=== PATIENT | female | born 1975 | race Caucasian/White ===

== ENCOUNTER 2016-12-24 12:01 | Emergency (ER) | payer BC ==
[2016-12-24 12:23] VITALS: BP 121/65
--- NOTE | 2016-12-24 13:56 | UC ---
Throat Pain/Nasal Karel HPI - HPI Summary HPI Summary: FOUR WEEKS OF SINUS PRESSURE AND POST NASAL DRIP. - History of Current Complaint Chief Complaint: UCGeneralIllness Stated Complaint: SINUS COMPLAINT Time Seen by Provider: 12/24/16 12:23 Hx Obtained From: Patient Hx Last Menstrual Period: 2016 Onset/Duration: Gradual Onset, Lasting Days Pain Intensity: 0 Pain Scale Used: 0-10 Numeric Cough: None Associated Signs & Symptoms: Positive: Sinus Discomfort, Nasal Discharge - Allergies/Home Medications Allergies/Adverse Reactions: Allergies Allergy/AdvReac Type Severity Reaction Status Date / Time Aspirin Allergy Severe cant breath Verified 01/14/16 18:23 Home Medications: Home Medications Ascorbic Acid TAB* [Vitamin C TAB*] 500 mg PO DAILY 12/24/16 [History Confirmed 12/24/16] Cholecalciferol TAB* [Vitamin D TAB*] 400 unit PO DAILY 12/24/16 [History Confirmed 12/24/16] guaiFENesin ER TAB [Mucinex*] 1 tab PO BID 12/24/16 [History Confirmed 12/24/16] PMH/Surg Hx/FS Hx/Imm Hx Previously Healthy: Yes Endocrine History Of: Denies: Diabetes Cardiovascular History Of: Denies: Cardiac Disorders Respiratory History Of: Reports: Asthma - Surgical History Surgical History: Yes Surgery Procedure, Year, and Place: tonsilectomy. 05- varicose vein - Family History Known Family History: Positive: Cardiac Disease, Hypertension, Diabetes, Respiratory Disease - Social History Occupation: Employed Full-time Lives: With Family Alcohol Use: Occasionally Substance Use Type: None Smoking Status (MU): Never Smoked Tobacco - Immunization History Most Recent Influenza Vaccination: [id number] Review of Systems Constitutional: Negative Skin: Negative Eyes: Negative ENT: Ear Ache, Nasal Discharge Respiratory: Cough Cardiovascular: Negative Gastrointestinal: Negative Genitourinary: Negative Motor: Negative Neurovascular: Negative Musculoskeletal: Negative Neurological: Negative Psychological: Negative All Other Systems Reviewed And Are Negative: Yes Physical Exam Triage Information Reviewed: Yes Appearance: Well-Appearing, No Pain Distress, Well-Nourished Vital Signs: Initial Vital Signs Temp 98.8 F 12/24/16 12:17 Pulse 54 12/24/16 12:17 Resp 16 12/24/16 12:17 BP 121/65 12/24/16 12:17 Pulse Ox 100 12/24/16 12:17 Vital Signs Reviewed: Yes Eye Exam: Normal Eyes: Positive: Conjunctiva Clear ENT: Positive: Hearing grossly normal, Pharynx normal, TM bulging, TM dull Dental Exam: Normal Neck exam: Normal Respiratory Exam: Normal Respiratory: Positive: Chest non-tender, Lungs clear, Normal breath sounds, No respiratory distress, No accessory muscle use Cardiovascular Exam: Normal Cardiovascular: Positive: RRR, No Murmur, Pulses Normal Abdominal Exam: Normal Abdomen Description: Positive: Nontender, No Organomegaly Musculoskeletal Exam: Normal Neurological Exam: Normal Psychological Exam: Normal Skin Exam: Normal Throat Pain/Nasal Course/Dx - Differential Dx/Diagnosis Differential Diagnosis/HQI/PQRI: Pharyngitis, Sinusitis, Tonsillitis Provider Diagnoses: SINUSITIS Discharge - Discharge Plan Condition: Stable Disposition: HOME Prescriptions: Amoxicillin/Clavulanate TAB* [Augmentin TAB 875*] 875 mg PO BID #20 tab Patient Education Materials: Sinusitis (ED) Referrals: Chasidy Moore MD [Primary Care Provider] -
== END 2016-12-24 12:41 | disposition home or self-care (01) ==
LOC: UCEAST 12:01
DX: J32.9 Chronic sinusitis, unspecified (principal); Z88.6 Allergy status to analgesic agent
CPT/HCPCS: 99212; G0463